=== PATIENT | male | born 1990 | race Two or more races ===

== ENCOUNTER 2023-08-18 07:46 | Outpatient (CLI) | payer OTHER | END 2023-08-18 07:51 | disposition home or self-care (01) | LOC: SONOGRAMA 07:46 | PROVIDERS: ATTEND Pathology Anatomic Pathology & Clinical Pathology | DX: D34 Benign neoplasm of thyroid gland (principal); E06.3 Autoimmune thyroiditis; E04.1 Nontoxic single thyroid nodule; L04.0 Acute lymphadenitis of face, head and neck ==